=== PATIENT | female | born 1955 | race Caucasian/White ===

== ENCOUNTER 2016-11-02 11:21 | Observation (INO) | payer BC ==
[~2016-11-02] VITALS: Ht 160 cm; Wt 74.2 kg
[2016-11-02 12:19] LABS: HEMATOCRIT 44.3 % (36.0-46.0); MCH 30.2 PG (29.0-34.0); MCHC 33.2 G/DL (30.0-36.0); MCV 91.2 FL (83-99); MEAN PLAT.VOLUME 9.8 uM^3 (9.5-12.4); PLATELET COUNT 310 K/uL (156-360); RBC DIS.WIDTH-CV 13.7 % (11.8-14.6); RBC DIS.WIDTH-SD 46.2 % (39-53); RED BLOOD COUNT 4.86 M/uL (3.80-5.20); WHITE BLOOD COUNT 14.6 K/uL (4.1-10.2)
[2016-11-02 12:35] LABS: CHLORIDE 111 mEq/L (99-109); POTASSIUM 4.9 mEq/L (3.7-5.4); SODIUM 146 mEq/L (136-147)
[2016-11-02 12:38] LABS: GLUCOSE 106 mg/dL (70-99)
[2016-11-02 12:39] LABS: ANION GAP 8 MEQ/L (2-14)
[2016-11-02 12:40] LABS: TOTAL BILIRUBIN 0.5 mg/dL (0.0-1.0)
[2016-11-02 12:41] LABS: ALKALINE PHOSPHATASE 84 IU/L (3-129); GFR ESTIMATE (CALCULATED) > 59 mL/min/
[2016-11-02 12:43] LABS: UREA NITROGEN (BUN) 19 mg/dL (9-23)
[2016-11-02 12:47] LABS: TROP-I INTERPRETATION NEGATIVE; TROPONIN-I < 0.01 ng/mL (0.0-0.30)
[2016-11-02 13:45] LABS: ADD MIUA? YES; BILIRUBIN NEGATIVE; BLOOD NEGATIVE; COLOR YELLOW ((YELLOW)); GLUCOSE (STRIP) NEGATIVE; KETONES NEGATIVE; LEUKOCYTES TRACE; NITRITE NEGATIVE; PROTEIN (STRIP) NEGATIVE; SPECIFIC GRAVITY 1.017 (1.000-1.030); UROBILINOGEN 0.2 MG/DL (0.2-1.0)
[2016-11-02 13:55] LABS: BACTERIA NONE SEEN /HPF; EPITHELIAL CELLS RARE /HPF; HYALINE CASTS 0-5 /LPF; MUCUS TRACE /LPF; RED BLOOD CELLS 0-5 /HPF (0-5); UCUL ADDED? NO; WHITE BLOOD CELLS 0-5 /HPF (0-5)
[2016-11-02 15:54] VITALS: BP 122/66
[2016-11-02] MEDS ORDERED: PANTOPRAZOLE SO40 MG PO (16:23)
[2016-11-02] MEDS ORDERED: DULOXETINE HCL30 MG PO (16:24)
[2016-11-02] MEDS ORDERED: CALCIUM 600-VI1 EAC1 PO (16:26)
[2016-11-02 19:16] VITALS: BP 134/67
[2016-11-02 19:46] LABS: TROP-I INTERPRETATION NEGATIVE; TROPONIN-I < 0.01 ng/mL (0.0-0.30)
[2016-11-03 00:20] VITALS: BP 116/62
[2016-11-03 01:53] LABS: TROP-I INTERPRETATION NEGATIVE; TROPONIN-I < 0.01 ng/mL (0.0-0.30)
[2016-11-03 04:35] VITALS: BP 120/69
[2016-11-03 06:19] LABS: HEMATOCRIT 34.7 % (36.0-46.0); MCH 30.3 PG (29.0-34.0); MCHC 33.1 G/DL (30.0-36.0); MCV 91.6 FL (83-99); MEAN PLAT.VOLUME 9.9 uM^3 (9.5-12.4); PLATELET COUNT 246 K/uL (156-360); RBC DIS.WIDTH-SD 46.6 % (39-53); WHITE BLOOD COUNT 6.5 K/uL (4.1-10.2)
[2016-11-03 06:23] LABS: RED BLOOD COUNT 3.79 M/uL (3.80-5.20)
[2016-11-03 07:52] VITALS: BP 111/70
[2016-11-03] MEDS ORDERED: MURO-128 5300 DROP/1 BOTH EYES (09:41)
[2016-11-03] MEDS ORDERED: ONE DAILY MULT1 EACH PO (09:41)
== END 2016-11-03 11:59 | disposition home or self-care (01) ==
LOC: EME 11:21 → EDOF 13:29 → 5WEST 13:29 → EDOF 13:29 → 5WEST 15:49
PROVIDERS: Internal Medicine; Physician Assistant
DX: R55 Syncope and collapse (principal); F32.9 Major depressive disorder, single episode, unspecified; M34.9 Systemic sclerosis, unspecified
CPT/HCPCS: 70450; 71020; 80053; 81003; 84484; 85027; 93005; 93306; 93880; 95819; 99281; 99285; G0378; J1650; J2405; J7030